=== PATIENT | female | born 1980 | race Caucasian/White ===

== ENCOUNTER 2024-09-11 11:53 | Emergency (ER) | payer BC, SELFPAY ==
[2024-09-11 12:00] VITALS: BP 128/74
[2024-09-11 12:32] LABS: % Basophils 0.3 % (0-2); % Eosinophils 0.8 % (0-6); % Immature Granulocytes 0.4 % (0-0.5); % Monocytes 5.8 % (1.7-9.3); % Neutrophils 63.7 % (42.2-75.2); Absolute Eosinophils 0.1 10^3/uL (0-0.7); Absolute Lymphocytes 2.3 10^3/uL (1.2-3.4); Absolute Monocytes 0.5 10^3/uL (0.1-0.6); Absolute Neutrophils 5.1 10^3/uL (1.4-6.5); Hematocrit 37.8 % (37.0-47.0); Hemoglobin 12.9 g/dL (12.0-16.0); Mean Corp Hgb Conc. 34.1 g/dL (33.0-37.0); Mean Corpuscular Hgb 28.5 pg (27.0-31.0); Mean Corpuscular Volume 83.6 fL (81.0-99.0); Mean Platelet Volume 9.1 fL (7.4-10.4); Nucleated Red Blood Cells % 0 %; Platelet Count 205 10^3/uL (130-400); Red Blood Cell Count 4.52 10^6/uL (4.20-5.40); Red Cell Dist. Width 12.6 % (11.5-14.5)
[2024-09-11 12:45] LABS: HCG, Serum Qualitative Screen Negative
[2024-09-11 12:49] LABS: ALT (SGPT) 37 U/L (0-35); AST (SGOT) 28 U/L (14-36); Albumin 4.4 g/dl (3.5-5.0); Alkaline Phosphatase 89 U/L (38-126); Blood Urea Nitrogen 12 mg/dl (7-17); Calcium 9.4 mg/dl (8.4-10.2); Carbon Dioxide 25 mmol/L (22-30); Chloride 104 mmol/L (98-107); Glucose 98 mg/dl (70-99); Potassium 4.1 mmol/L (3.5-5.1); Sodium 137 mmol/L (135-145); Total Bilirubin 0.6 mg/dl (0.2-1.3); Total Protein 7.2 g/dl (6.3-8.2); eGFR > 60.00
[2024-09-11 12:56] LABS: Troponin I < 0.012 ng/ml
[2024-09-11 13:15] LABS: TSH Reflex To Free T4 1.79 uIU/ml (0.47-4.68)
[2024-09-11 13:33] VITALS: BP 92/65
[2024-09-11 14:00] VITALS: BP 94/69
--- NOTE | 2024-09-11 14:44 | ED.GENMED ---
History of Present Illness
General
Chief Complaint: Chest Pain
Source: patient
Exam Limitations: none
Time Seen by Provider: 09/11/24 14:43
Nursing documentation reviewed up to this point in time: agreed with
History of Present Illness
History of Present Illness:
44-year-old female with past medical history of hyperlipidemia, GERD who presents emergency department today with concerns of a transient episode of chest pain, shortness of breath, and lightheadedness. Patient reports that last night, she states
that she started to notice pain under her left breast and she was short of breath. This started after patient was doing stretching exercises. She also started to feel palpitations at that time as well. She also felt a transient episode of nausea.
She also felt paresthesias in her hands and feet. This episode lasted around 10 minutes and resolved. Patient states that a few days prior to this, she did have random episodes of shortness of breath not related to exertion. She has no family
history of cardiac disease. Patient denies any recent surgeries, any redness or swelling in her legs. Patient denies any syncopal episodes. Currently patient is completely asymptomatic. She went to urgent care today, sent to emergency department
for further evaluation.
Past History
Past History
ED Past Medical History: Other
ED Past Surgical History: None
Social History
Tobacco: Non-smoker
Alcohol: Other
Drug: None
Personal:
Living: with family
Employment: Other
Family History
Family History: Other
Review of Systems
Review of Systems
All Other Systems: ROS reviewed and negative except as documented in HPI and ROS
Phy Exam
Physical Exam
Physical Exam:
General: Patient is well appearing and in no acute distress; non-toxic
Skin: Warm and dry, no rashes or lesions
Head: Normocephalic, atraumatic
Eyes: Sclera non-icteric. EOMs intact.
Cardiac: Regular rate and rhythm, no murmurs
Peripheral Vascular: No lower extremity swelling or edema
Pulm: Normal respiratory effort, no wheezes, rales, rhonchi
Abdomen: No abdominal tenderness to palpation
Neuro: CN II-XII intact, no focal neurologic deficits.
Psychiatric: Appropriate mood and affect.
Scores
Heart Score for Chest Pain Patients
STEMI patient?: No
History: Slightly or Non-Suspicious
ECG: Normal
Age: </= 45 years
Risk Factors: 1 or 2 Risk Factors
Troponin: </= Normal Limit
Heart Score for Chest Pain Patients: 1
Heart Score Risk: 2.5% MACE over next 6 weeks
Course
Orders/Labs/Results
Orders:
Orders
09/11/24 11:54
Electrocardiogram (*1) Urgent
Reason for Study: Chest Pain
EKG- Treatment ONCE
09/11/24 12:06
Test Result ONCE
09/11/24 12:14
Complete Blood Count/With Diff Urgent
Comprehensive Metabolic Panel Urgent
HCG, Serum Qualitative Screen Urgent
TSH Reflex To Free T4 Urgent
Troponin I Urgent
09/11/24 15:24
0.9% Sodium Chloride 1000 ml [Nss] 1,000 ml IV BOLUS
09/11/24 15:45
D-Dimer Urgent
Abnormal Lab Results
09/11/24
12:14
ALT 37 H U/L
(0-35)
09/11/24 12:14
09/11/24 12:14
Vital Signs
Blood pressure: 107/60
Initial and Last Documented VS:
Initial Vital Signs
Temp Pulse Resp BP Pulse Ox
97.7 F 83 18 128/74 95
09/11/24 12:00 09/11/24 12:00 09/11/24 12:00 09/11/24 12:00 09/11/24 12:00
Last Documented Vital Signs
Temp Pulse Resp BP Pulse Ox
97.7 F 85 11 107/60 99
09/11/24 12:00 09/11/24 16:45 09/11/24 16:45 09/11/24 16:41 09/11/24 15:44
MDM/Problems Addressed
Differential Diagnosis Includes:
Differentials include costochondritis, vasovagal presyncope, pulmonary embolism, panic attack
MDM/Problems Addressed:
44-year-old female presents emergency department with concerns of a transient 10-minute episode of shortness of breath, nausea, and chest pain. Currently she is asymptomatic. This occurred in the setting of stretching/exercise. She has history of
hyperlipidemia but otherwise no cardiac risk factors. She has no DVT risk factors. Physical exam she is well-appearing in no acute distress. Her vitals are stable. Her CBC and CMP are unremarkable. Her troponins undetectable. Her D-dimer is
normal. Her EKG demonstrates normal sinus rhythm with no concerning ischemic changes. Suspect possible panic attack versus vasovagal episode. Discussed that in light of patient's sensation of palpitations at the time that occurred yesterday,
advised that she should be evaluated by a college associate. Patient stable for discharge
*Pulse Oximetry
Patient hypoxic: no
*EKG
Interpreted by ED Provider?: Yes
EKG Intrepretation Date: 09/11/24
Interpretation: normal
Comparison EKG: no comparison EKG present
Heart Rate: 80
Rate: normal
Rhythm: sinus
[place]: normal axis
*Critical Care Note
Total Time (30-74mins, 75-104mins- exclusive of procedures): Not Applicable
Data Reviewed
Review of Other/Old Records Reveals: Records (Reviewed ER physician documentation from 05/10/2022 patient seen for right sided abdominal pain, her CAT scan was normal and negative labs)
Source: patient and records
ED Attending Note
-
Portions of this chart may have been created with voice recognition software.� Occasional wrong word or��sound alike� substitutions may have occurred due to the inherent limitations of voice recognition software.
Discharge Plan
Departure
Patient Disposition: Home (Routine Discharge)
Date of Disposition: 09/11/24
Time of Disposition: 16:34
Patient with high blood pressure during this ER visit?: No
Condition: Good
Discharge Problem:
Chest pain
Instructions: Chest pain, BLOOD PRESSURE
Referrals:
Kurt Julien DO [Family Provider] -
Kymberly Solomon MD [Active] - Call in 1-3 days for appt
Activity Restrictions/Additional Instructions:
Regarding your episode of palpitations, I recommend following up with cardiology and calling the attached number to schedule an appointment.
PLEASE RETURN EMERGENCY DEPARTMENT SHOULD YOU DEVELOP RETURN OF YOUR SYMPTOMS, LIGHTHEADEDNESS, SHORTNESS OF BREATH, DIZZINESS, SYNCOPAL EPISODES, WEAKNESS ONE-SIDED BODY VERSUS OTHER, UPPER BACK PAIN, OR ANY OTHER SIGNS OR SYMPTOMS WORRISOME.
Interventions
Interventions:
*Risk Screen - Suicide Last Done: 09/11/24 12:00
*General Assessment Last Done: 09/11/24 12:00
*Neglect/Abuse Screening Last Done: 09/11/24 12:00
ED- Fall Risk Assessment Last Done: 09/11/24 15:55
*Nursing Disposition Last Done: 09/11/24 17:09
ED- Cardiac Assessment Last Done: 09/11/24 15:55
Discharge Date and Time
Discharge Date/Time: 09/11/24 17:16
Print Language: KHMER
[2024-09-11 15:00] VITALS: BP 87/61
[2024-09-11] MEDS: NSS 1000 IV (15:45)
[2024-09-11 16:04] LABS: D-Dimer 0.42 ug/mlFEU (0.00-0.50)
[2024-09-11 16:37] VITALS: BP 107/66
== END 2024-09-11 17:16 | disposition home or self-care (01) ==
LOC: EMR 11:53
PROVIDERS: Emergency Medicine; Physician Assistant; EMERGENCY PHYSICIAN Emergency Medicine; FAMILY PHYSICIAN Family Medicine
DX: R07.89 Other chest pain (principal); K21.9 Gastro-esophageal reflux disease without esophagitis; E78.5 Hyperlipidemia, unspecified
CPT/HCPCS: 99284; 96360; 80053; 84443; 84484; 84703; 85025; 85379; 93005